=== PATIENT | male | born 1995 | race Caucasian/White ===

== ENCOUNTER 2019-06-21 00:34 | Emergency (ER) | payer MEDICAID, OTHER ==
[~2019-06-21] VITALS: Ht 167.6 cm; Wt 63.0 kg
[~2019-06-21 00:34] MED LIST: IBUP-1984 PO
[2019-06-21 00:37] VITALS: BP 120/72
[2019-06-21] MEDS ORDERED: HYDR-3965 PO (04:11)
[2019-06-21] MEDS ORDERED: METH4TAB81 PO (04:11)
[2019-06-21] MEDS ORDERED: ONDA4TAB6 PO (04:11)
[2019-06-21] MEDS ORDERED: AMOX500C2 PO (04:11)
[2019-06-21] MEDS ORDERED: ibuprofen tablet 400 MG TABLET PO ONE (04:15)
[2019-06-21] MEDS ORDERED: acetaminophen 325mg tablet PO ONE (04:15)
[2019-06-21] MEDS ORDERED: dexamethasone 4mg tablet PO ONE (04:20)
== END 2019-06-21 04:27 | disposition home or self-care (01) ==
LOC: ER 00:35
DX: K02.9 Dental caries, unspecified (principal); K04.7 Periapical abscess without sinus; J32.0 Chronic maxillary sinusitis; Z79.899 Other long term (current) drug therapy
CPT/HCPCS: 99284